=== PATIENT | male | born 1935 | race Caucasian/White ===

== ENCOUNTER 2017-07-30 07:52 | Inpatient (IN) | payer MEDICARE ==
[~2017-07-30] VITALS: Ht 172.7 cm; Wt 100.0 kg
[2017-07-30 08:00] VITALS: RESP 10; O2SAT 93
[2017-07-30 08:07] VITALS: BP 148/70; PULSE 59; RESP 14; TEMP 97.7; O2SAT 97
--- NOTE | 2017-07-30 08:14 | RADRPT ---
EXAM DATE/TIME: 07/30/2017 08:08 [facility] COMPARISON: No previous studies available for comparison. INDICATIONS : Syncope MEDICAL HISTORY : Cardiovascular disease. SURGICAL HISTORY : Pacemaker. ENCOUNTER: Initial ACUITY: 1 day PAIN SCORE: Non-responsive. LOCATION: chest FINDINGS: Single view of the chest demonstrates a dual-lead cardiac pacer. The heart size is mildly enlarged. T here is mild cephalization of pulmonary vasculature. The lungs are grossly clear. Osseous structures are unremarkable. CONCLUSION: Radiographic findings consistent with congestive heart failure. Dary Delvalle MD on July 30, 2017 at 8:10 Board Certified Radiologist. This report was verified electronically.
[2017-07-30 08:34] LABS: AUTOMATED NEUTROPHIL # 6.1 TH/MM3 (1.8-7.7); BASOPHIL % 0.2 % (0.0-2.0); EOSINOPHIL % 0.1 % (0.0-4.0); HEMATOCRIT 33.6 % (39.0-51.0); LYMPH % 7.7 % (9.0-44.0); LYMPHOCYTE # 0.5 TH/MM3 (1.0-4.8); MEAN CELL VOLUME 83.4 FL (80.0-100.0); MEAN CORPUSCULAR HEMOGLOBIN 27.3 PG (27.0-34.0); MEAN CORPUSCULAR HGB CONC 32.7 % (32.0-36.0); MONO % 4.2 % (0.0-8.0); MONOCYTE # 0.3 TH/MM3 (0-0.9); NEUT % 87.8 % (16.0-70.0); PLATELET COUNT 181 TH/MM3 (150-450); RED BLOOD COUNT 4.03 MIL/MM3 (4.50-5.90); RED CELL DISTRIBUTION WIDTH 17.3 % (11.6-17.2); WHITE BLOOD COUNT 6.9 TH/MM3 (4.0-11.0)
--- NOTE | 2017-07-30 08:39 | RADRPT ---
EXAM DATE/TIME: 07/30/2017 08:29 [facility] COMPARISON: No previous studies available for comparison. INDICATIONS : Altered mental status. RADIATION DOSE: 56.35 CTDIvol (mGy) MEDICAL HISTORY : Cardiovascular disease. SURGICAL HISTORY : None. ENCOUNTER: Initial ACUITY: 1 day PAIN SCALE: 0/10 LOCATION: cranial TECHNIQUE: Multiple contiguous axial images were obtained of the head. Using automated exposure control and adj ustment of the mA and/or kV according to patient size, radiation dose was kept as low as reasonably a chievable to obtain optimal diagnostic quality images. DICOM format image data is available electro nically for review and comparison. FINDINGS: CEREBRUM: The ventricles are normal for age. No evidence of midline shift, mass lesion, hemorrhage or acute in farction. No extra-axial fluid collections are seen. POSTERIOR FOSSA: The cerebellum and brainstem are intact. The 4th ventricle is midline. The cerebellopontine angle i s unremarkable. EXTRACRANIAL: The visualized portion of the orbits is intact. SKULL: The calvaria is intact. No evidence of skull fracture. CONCLUSION: Normal examination for a patient of this age. Dary Delvalle MD on July 30, 2017 at 8:36 Board Certified Radiologist. This report was verified electronically.
[2017-07-30 08:42] LABS: BACTERIA, URINE MOD /hpf; BILIRUBIN, URINE NEG (NEG); BLOOD, URINE NEG (NEG); GLUCOSE,URINE TRACE mg/dL (NEG); KETONE, URINE TRACE mg/dL (NEG); MUCUS URINE FEW /lpf (OCC); NITRITE,URINE POS (NEG); URINE COLOR YELLOW (YELLW/STRAW); URINE LEUKOCYTE ESTERASE LARGE (NEG); WHITE BLOOD CELL CLUMPS OCC
[2017-07-30 08:47] LABS: INTERNATIONAL NORMALIZED RATIO 1.1 RATIO; PROTHROMBIN TIME - PATIENT 10.7 SEC (9.8-11.6)
[2017-07-30 08:55] LABS: ALBUMIN 4.1 GM/DL (3.4-5.0); ALT (GPT) 16 U/L (12-78); AST (GOT) 19 U/L (15-37); BICARBONATE 24.6 MEQ/L (21.0-32.0); BLOOD UREA NITROGEN 29 MG/DL (7-18); CHLORIDE 106 MEQ/L (98-107); CREATININE 1.23 MG/DL (0.60-1.30); GLOMERULAR FILTRATION RATE 57 ML/MIN (>89); GLUCOSE,RANDOM 207 MG/DL (74-106); SODIUM (NA) 140 MEQ/L (136-145)
--- NOTE | 2017-07-30 08:59 | PD ---
HPI Chief Complaint: Altered Mental Status Time Seen by Provider: 07:58 Travel History International Travel<30 days: No Contact w/Intl Traveler<30days: No Traveled to known affect area: No History of Present Illness HPI There is an 82-year-old man who presents to the emergency department for altered mental status. [place] of state. states that starting yesterday and today he got progressively more lethargic and confused. Patient unable to provide any meaningful history. Denies any complaints at this time. Medical history obtained from EMS includes CHF, COPD, pacemaker, and use of warfarin for unclear reasons related to the pacemaker. History Past Medical History Narrative Medical Obtained from EMS CHF COPD Pacemaker used for low heart rate Warfarin use Social History Tobacco Use: No Allergies-Medications (Allergen,Severity, Reaction): Coded Allergies: atorvastatin (Verified Allergy, Unknown, 07/30/17) ciprofloxacin (Verified Allergy, Unknown, 07/30/17) doxycycline (Verified Allergy, Unknown, 07/30/17) Reported Meds & Prescriptions Reported Meds & Active Scripts Active Reported Baclofen 20 Mg Tab 20 Mg PO TID Trimethoprim 100 Mg Tab 100 Mg PO DAILY Tamsulosin (Tamsulosin HCl) 0.4 Mg Cap 0.4 Mg PO HS Fenofibrate 160 Mg Tab 160 Mg PO DAILY Amlodipine (Amlodipine Besylate) 10 Mg Tab 10 Mg PO DAILY Tradjenta (Linagliptin) 5 Mg Tab 5 Mg PO DAILY Finasteride 5 Mg Tab 5 Mg PO DAILY Do not crush. Ventolin Hfa 18 GM Inh (Albuterol Sulfate) 90 Mcg/Act Aer 2 Puff INH Q6H PRN Glipizide ER (Glipizide) 5 Mg Rico 5 Mg PO DAILY Take with breakfast or first main meal of the day. Warfarin 2 Mg Tab 2 Mg PO DAILY Metformin (Metformin HCl) 850 Mg Tab 850 Mg PO BIDPC Metoprolol Succinate ER 24 HR (Metoprolol Succinate) 100 Mg Tab 100 Mg PO DAILY Spiriva Handihaler (Tiotropium Inh) 18 Mcg Cap 18 Mcg INH DAILY 1 capsule = 18 mcg Tradjenta (Linagliptin) 5 Mg Tab 5 Mg PO DAILY Review of Systems Except as stated in HPI: all other systems reviewed are Neg Physical Exam Narrative GENERAL: 82-year-old man, no acute distress. SKIN: Warm, little bit moist. HEAD: Atraumatic. Normocephalic. EYES: Pupils equal and round. No scleral icterus. No injection or drainage. ENT: No nasal bleeding or discharge. Mucous membranes pink and moist. NECK: Trachea midline. No JVD. CARDIOVASCULAR: Regular rate and rhythm. No murmur appreciated. RESPIRATORY: No accessory muscle use. Clear to auscultation. Breath sounds equal bilaterally. GASTROINTESTINAL: Abdomen soft, non-tender, nondistended. Hepatic and splenic margins not palpable. MUSCULOSKELETAL: No obvious deformities. Trace edema. NEUROLOGICAL: Sluggishly responsive. Unable to really answer questions or follow complex commands. No apparent focal deficits. Data Data Last Documented VS Vital Signs Date Time Temp Pulse Resp B/P (MAP) Pulse Ox O2 Delivery O2 Flow Rate FiO2 07/30/17 08:07 97.7 59 14 148/70 (96) 97 Nasal Cannula 2.00 Orders Orders Electrocardiogram (07/30/17 07:58) Complete Blood Count With Diff (07/30/17 07:58) Comprehensive Metabolic Panel (07/30/17 07:58) Prothrombin Time / Inr (Pt) (07/30/17 07:58) Act Partial Throm Time (Ptt) (07/30/17 07:58) Troponin I (07/30/17 07:58) Thyroid Stimulating Hormone (07/30/17 07:58) Urinalysis - C+S If Indicated (07/30/17 07:58) Lactic Acid Sepsis Protocol (07/30/17 07:58) Arterial Blood Gas (Abg) (07/30/17 07:58) Blood Culture (07/30/17 07:58) Chest, Single Ap (07/30/17 07:58) Ct Brain W/O Iv Contrast(Rout) (07/30/17 07:58) Blood Glucose (07/30/17 07:58) Ecg Monitoring (07/30/17 07:58) Iv Access Insert/Monitor (07/30/17 07:58) Cath For Specimen (07/30/17 07:58) Oximetry (07/30/17 07:58) Drug Screen, Random Urine (07/30/17 07:58) Alcohol (Ethanol) (07/30/17 07:58) Urine Culture (07/30/17 08:20) Ceftriaxone Inj (Rocephin Inj) (07/30/17 09:15) Admit To Inpatient (07/30/17 ) Inpatient Certification (07/30/17 ) Diet Npo (07/30/17 Lunch) Nursing Bedside Swallow Assess .ONCE (07/30/17 10:30) Vital Signs (Adult) NENO.Q4H (07/30/17 10:30) Neuro Checks . ORDERED (07/30/17 10:30) Activity Bed Rest With Brp (07/30/17 10:30) Admit Order (Ed Use Only) (07/30/17 ) Bedside Glucose NENO.CSUGAR (07/30/17 10:32) Labs Laboratory Tests Test 07/30/17 08:20 07/30/17 08:38 White Blood Count 6.9 TH/MM3 Red Blood Count 4.03 MIL/MM3 Hemoglobin 11.0 GM/DL Hematocrit 33.6 % Mean Corpuscular Volume 83.4 FL Mean Corpuscular Hemoglobin 27.3 PG Mean Corpuscular Hemoglobin Concent 32.7 % Red Cell Distribution Width 17.3 % Platelet Count 181 TH/MM3 Mean Platelet Volume 8.0 FL Neutrophils (%) (Auto) 87.8 % Lymphocytes (%) (Auto) 7.7 % Monocytes (%) (Auto) 4.2 % Eosinophils (%) (Auto) 0.1 % Basophils (%) (Auto) 0.2 % Neutrophils # (Auto) 6.1 TH/MM3 Lymphocytes # (Auto) 0.5 TH/MM3 Monocytes # (Auto) 0.3 TH/MM3 Eosinophils # (Auto) 0.0 TH/MM3 Basophils # (Auto) 0.0 TH/MM3 CBC Comment DIFF FINAL Differential Comment Prothrombin Time 10.7 SEC Prothromb Time International Ratio 1.1 RATIO Activated Partial Thromboplast Time 21.2 SEC Urine Color YELLOW Urine Turbidity HAZY Urine pH 6.0 Urine Specific [place] 1.015 Urine Protein TRACE mg/dL Urine Glucose (UA) TRACE mg/dL Urine Ketones TRACE mg/dL Urine Occult Blood NEG Urine Nitrite POS Urine Bilirubin NEG Urine Urobilinogen LESS THAN 2.0 MG/DL Urine Leukocyte Esterase LARGE Urine RBC LESS THAN 1 /hpf Urine WBC 53 /hpf Urine WBC Clumps OCC Urine Bacteria MOD /hpf Urine Mucus FEW /lpf Microscopic Urinalysis Comment CATH-CULTURE IND Blood Urea Nitrogen 29 MG/DL Creatinine 1.23 MG/DL Random Glucose 207 MG/DL Total Protein 7.6 GM/DL Albumin 4.1 GM/DL Calcium Level 9.0 MG/DL Alkaline Phosphatase 28 U/L Aspartate Amino Transf (AST/SGOT) 19 U/L Alanine Aminotransferase (ALT/SGPT) 16 U/L Total Bilirubin 0.5 MG/DL Sodium Level 140 MEQ/L Potassium Level 4.4 MEQ/L Chloride Level 106 MEQ/L Carbon Dioxide Level 24.6 MEQ/L Anion Gap 9 MEQ/L Estimat Glomerular Filtration Rate 57 ML/MIN Lactic Acid Level 1.0 mmol/L Troponin I LESS THAN 0.02 NG/ML Thyroid Stimulating Hormone 3rd Gen 0.814 uIU/ML Urine Opiates Screen NEG Urine Barbiturates Screen NEG Urine Amphetamines Screen NEG Urine Benzodiazepines Screen NEG Urine Cocaine Screen NEG Urine Cannabinoids Screen NEG Ethyl Alcohol Level LESS THAN 3 MG/DL Blood Gas Puncture Site RT RADIAL Blood Gas Patient Temperature 98.6 Blood Gas HCO3 23 mmol/L Blood Gas Base Excess -2.0 mmol/L Blood Gas Oxygen Saturation 94 % Arterial Blood pH 7.31 Arterial Blood Partial Pressure CO2 48 mmHg Arterial Blood Partial Pressure O2 89 mmHG Arterial Blood Oxygen Content 13.7 Vol % Arterial Blood Carboxyhemoglobin 1.1 % Arterial Blood Methemoglobin 0.6 % Blood Gas Hemoglobin 10.4 G/DL Oxygen Delivery Device NASAL CANNULA Blood Gas Liter Flow 2 L/M [facility] Medical Decision Making Medical Screen Exam Complete: Yes Emergency Medical Condition: Yes Interpretation(s) LABS: CBC remarkable for mild anemia. CMP glucose 207 TSH normal Lactate 1.0 Troponin negative Coags unremarkable. Drug screen negative Alcohol negative Coags unremarkable UA with pyuria. ABG 7.3 // Head CT normal Chest x-ray: Radiographic findings consistent with congestive heart failure. Review of EKG: Ventricular paced at a rate of 60, underlying rhythm may be a flutter. Differential Diagnosis Infection, sepsis, UTI, stroke, intracranial bleed, hypoventilation, other Narrative Course Medical decision making INITIAL: 82-year-old male presents to emergency room with altered mental status. Workup is suggestive of a UTI as a cause of his altered mental status. Respirations dewdrop at times and patient somnolent. Did respond oxygen. Looks a little bit unwell but not toxic. Given IV antibiotics. Does not appear grossly volume overloaded but chest x-rays were read as a little bit wet. Will hold IV fluids for now. Will admit for further evaluation and treatment. Diagnosis Primary Impression: Altered mental status Additional Impression: UTI (urinary tract infection) Admitting Information Admitting Physician Requests: Admit Manjit Odom MD Jul 30, 2017 08:58
[2017-07-30 09:05] LABS: ALKALINE PHOSPHATASE 28 U/L (45-117); TOTAL BILIRUBIN ADULT 0.5 MG/DL (0.2-1.0); TOTAL PROTEIN 7.6 GM/DL (6.4-8.2); TROPONIN I LESS THAN 0.02 NG/ML (0.02-0.05)
[2017-07-30] MEDS ORDERED: cefTRIAXone INJ 1,000 MG in SODIUM CHLORIDE 0.9% INJ 100 ML IV ONE (09:15)
[2017-07-30] MEDS ORDERED: FENO160T PO (09:20)
[2017-07-30] MEDS ORDERED: METF850T PO (09:20)
[2017-07-30] MEDS ORDERED: FINA5TAB2 PO (09:20)
[2017-07-30] MEDS ORDERED: SPIRCAP INH (09:20)
[2017-07-30] MEDS ORDERED: GLIP1TAB49 PO (09:20)
[2017-07-30] MEDS ORDERED: TRAD5TAB PO ×2 (09:20)
[2017-07-30] MEDS ORDERED: AMLO10TA2 PO (09:20)
[2017-07-30] MEDS ORDERED: TRIME100 PO (09:20)
[2017-07-30] MEDS ORDERED: TAMS0.4C4 PO (09:20)
[2017-07-30] MEDS ORDERED: VENTAER INH (09:20)
[2017-07-30] MEDS ORDERED: BACL20TA PO (09:20)
[2017-07-30] MEDS ORDERED: METO1TAB43 PO (09:20)
[2017-07-30] MEDS ORDERED: WARF4TAB51 PO (09:20)
[2017-07-30 12:00] VITALS: BP 165/75; PULSE 60; RESP 16; TEMP 97.6; O2SAT 95
--- NOTE | 2017-07-30 15:13 | HHI.HP ---
[facility] Admission Diagnosis Altered mental status, UTI Diagnoses: (1) Enceohalopathy Diagnosis: Principal (2) Urinary tractninfection Diagnosis: Principal Chief Complaint: Change in mental status Travel History International Travel<30 Days: No Contact w/Intl Traveler <30 Da: No Traveled to Known Affected Are: No History of Present Illness Patient is a an 82-year-old male with known history of COPD, hypertension hyperlipidemia status post pacemaker placement, diabetes type 2, history of benign prostatic hypertrophy with a self catheterization twice a day for over the past 10 years now. He was diagnosed with BPH about 15 years ago and had microwave laser surgery for this. In between self-catheterization patient is able to void spontaneously. Yesterday he was noted by his to be confused and agitated. There was no documented fever or chills. Last evening after supper he was noted to be confused, states "wobbly". He was so confused that he wasn't able to catheterize. states that he was seeing people around him. At 3:30 AM patient woke up confused but is able to go back to sleep again after an hour. This morning at around 620 noted patient to be agitated. She called 911 and patient was brought in here for further evaluation and management. At the ER patient was given IV fluids. UA + for urinary tract infection. His last episode of urinary tract infection was in May 2017 Now on history taking patient is awake alert oriented 3. Very appropriate. And cooperative Per family patient just like this whenever he gets urinary tract infection. As mentioned he does self catheterization catheterization twice a day and gets around 200-250 cc. at a time The last time he did was as stated yesterday morning and was noted the urine to be cloudy. Review of Systems Constitutional: DENIES: Diaphoretic episodes, Fatigue, Fever, Weight gain, Weight loss, Chills, Dizziness, Change in appetite, Night Sweats Endocrine: DENIES: Heat/cold intolerance, Polydipsia, Polyuria, Polyphagia Eyes: DENIES: Blurred vision, Diplopia, Eye inflammation, Eye pain, Vision loss , Photosensitivity, Double Vision Ears, nose, mouth, throat: DENIES: Tinnitus, Hearing loss, Vertigo, Nasal discharge, Oral lesions, Throat pain, Hoarseness, Ear Pain, Running Nose, Epistaxis, Sinus Pain, Toothache, Odynophagia Respiratory: DENIES: Apneas, Cough, Snoring, Wheezing, Hemoptysis, Sputum production, Shortness of breath Cardiovascular: DENIES: Chest pain, Palpitations, Syncope, Dyspnea on Exertion , PND, Lower Extremity Edema, Orthopnea, Claudication Gastrointestinal: DENIES: Abdominal pain, Black stools, Bloody stools, Constipation, Diarrhea, Nausea, Vomiting, Difficulty Swallowing, Anorexia Genitourinary: COMPLAINS OF: Urinary frequency Musculoskeletal: DENIES: Joint pain, Muscle aches, Stiffness, Joint Swelling, Back pain, Neck pain Integumentary: DENIES: Abnormal pigmentation, Nail changes, Pruritus, Rash Hematologic/lymphatic: DENIES: Bruising, Lymphadenopathy Immunologic/allergic: DENIES: Eczema, Urticaria Neurologic: DENIES: Abnormal gait, Headache, Localized weakness, Paresthesias, Seizures, Speech Problems, Tremor, Poor Balance Psychiatric: DENIES: Anxiety, Confusion, Mood changes, Depression, Hallucinations, Agitation, Suicidal Ideation, Homicidal Ideation, Delusions Past Family Social History Past Medical History Hypertension COPD Hyperlipidemia Diabetes type 2 History of pacemaker placement. Denies any history of CAD or CVA History of benign prostatic hypertrophy status post microwave laser surgery Past Surgical History Pacemaker placement Back surgery Knuckle surgery for both hands due to arthritis Microwaved [place] surgery for prostate 10 years ago Reported Medications Trimethoprim 100 mg daily Spiriva Albuterol Tamsulosin Baclofen Warfarin Fenofibrate Toprol Amlodipine 10 mg Metformin 850 twice a Cogentin 5 mg daily Glipizide 5 mg daily Proscar 5 mg daily Jessica lax 17 g daily Allergies: Coded Allergies: atorvastatin (Verified Allergy, Unknown, 07/30/17) ciprofloxacin (Verified Allergy, Unknown, 07/30/17) doxycycline (Verified Allergy, Unknown, 07/30/17) Family History Noncontributory Social History Quit smoking 20 years ago denies alcohol or substance abuse Physical Exam Vital Signs Vital Signs Date Time Temp Pulse Resp B/P (MAP) Pulse Ox O2 Delivery O2 Flow Rate FiO2 07/30/17 12:00 97.6 60 16 165/75 (105) 95 07/30/17 11:41 07/30/17 08:07 97.7 59 14 148/70 (96) 97 Nasal Cannula 2.00 07/30/17 08:02 60 10 97 Nasal Cannula 2.00 07/30/17 08:00 10 93 Nasal Cannula 2.00 Physical Exam GENERAL: Awake alert oriented 3 not in any form of distress SKIN: No rashes, ecchymoses or lesions. Cool and dry. HEAD: Atraumatic. Normocephalic. No temporal or scalp tenderness. EYES: Pupils equal round and reactive. Extraocular motions intact. No scleral icterus. No injection or drainage. ENT: Nose without bleeding, Throat without erythema, tonsillar hypertrophy or exudate. Uvula midline. Airway patent. NECK: Trachea midline. No JVD or lymphadenopathy. Supple, nontender, no meningeal signs. CARDIOVASCULAR: Regular rate and rhythm without murmurs, gallops, or rubs. RESPIRATORY: Clear to auscultation. Breath sounds equal bilaterally. No wheezes , rales, or rhonchi. GASTROINTESTINAL: Abdomen soft, non-tender, . No guarding. Circumcised penis no penile discharge no scrotal swelling MUSCULOSKELETAL: Extremities without clubbing, cyanosis, or edema. No joint tenderness, effusion, or edema noted. No calf tenderness. Negative Homans sign bilaterally. NEUROLOGICAL: Awake and alert. Cranial nerves II through XII intact. Motor and sensory grossly within normal limits. Five out of 5 muscle strength in all muscle groups. Normal speech. Laboratory Laboratory Tests Test 07/30/17 08:20 07/30/17 08:38 White Blood Count 6.9 Red Blood Count 4.03 Hemoglobin 11.0 Hematocrit 33.6 Mean Corpuscular Volume 83.4 Mean Corpuscular Hemoglobin 27.3 Mean Corpuscular Hemoglobin Concent 32.7 Red Cell Distribution Width 17.3 Platelet Count 181 Mean Platelet Volume 8.0 Neutrophils (%) (Auto) 87.8 Lymphocytes (%) (Auto) 7.7 Monocytes (%) (Auto) 4.2 Eosinophils (%) (Auto) 0.1 Basophils (%) (Auto) 0.2 Neutrophils # (Auto) 6.1 Lymphocytes # (Auto) 0.5 Monocytes # (Auto) 0.3 Eosinophils # (Auto) 0.0 Basophils # (Auto) 0.0 CBC Comment DIFF FINAL Differential Comment Prothrombin Time 10.7 Prothromb Time International Ratio 1.1 Activated Partial Thromboplast Time 21.2 Urine Color YELLOW Urine Turbidity HAZY Urine pH 6.0 Urine Specific [place] 1.015 Urine Protein TRACE Urine Glucose (UA) TRACE Urine Ketones TRACE Urine Occult Blood NEG Urine Nitrite POS Urine Bilirubin NEG Urine Urobilinogen LESS THAN 2.0 Urine Leukocyte Esterase LARGE Urine RBC LESS THAN 1 Urine WBC 53 Urine WBC Clumps OCC Urine Bacteria MOD Urine Mucus FEW Microscopic Urinalysis Comment CATH-CULTURE IND Blood Urea Nitrogen 29 Creatinine 1.23 Random Glucose 207 Total Protein 7.6 Albumin 4.1 Calcium Level 9.0 Alkaline Phosphatase 28 Aspartate Amino Transf (AST/SGOT) 19 Alanine Aminotransferase (ALT/SGPT) 16 Total Bilirubin 0.5 Sodium Level 140 Potassium Level 4.4 Chloride Level 106 Carbon Dioxide Level 24.6 Anion Gap 9 Estimat Glomerular Filtration Rate 57 Lactic Acid Level 1.0 Troponin I LESS THAN 0.02 B-Type Natriuretic Peptide 129 Thyroid Stimulating Hormone 3rd Gen 0.814 Urine Opiates Screen NEG Urine Barbiturates Screen NEG Urine Amphetamines Screen NEG Urine Benzodiazepines Screen NEG Urine Cocaine Screen NEG Urine Cannabinoids Screen NEG Ethyl Alcohol Level LESS THAN 3 Blood Gas Puncture Site RT RADIAL Blood Gas Patient Temperature 98.6 Blood Gas HCO3 23 Blood Gas Base Excess -2.0 Blood Gas Oxygen Saturation 94 Arterial Blood pH 7.31 Arterial Blood Partial Pressure CO2 48 Arterial Blood Partial Pressure O2 89 Arterial Blood Oxygen Content 13.7 Arterial Blood Carboxyhemoglobin 1.1 Arterial Blood Methemoglobin 0.6 Blood Gas Hemoglobin 10.4 Oxygen Delivery Device NASAL CANNULA Blood Gas Liter Flow 2 Date/Time Source Procedure Growth Status 07/30/17 08:20 Blood Peripheral Aerobic Blood Culture Pending Received 07/30/17 08:20 Blood Peripheral Anaerobic Blood Culture Pending Received 07/30/17 08:20 Urine Catheterized Urine Urine Culture Pending Received Result Diagram: 07/30/17 0820 07/30/17 08 Imaging Last Impressions Head CT 07/30/17757 Signed Impressions: Service Date/Time: Sunday, July 30, 2017 08:29 - CONCLUSION: Normal examination for a patient of this age. Dary Delvalle MD Chest X-Ray 07/30/17757 Signed Impressions: Service Date/Time: Sunday, July 30, 2017 08:08 - CONCLUSION: Radiographic findings consistent with congestive heart failure. MD Naseem Pratt VTE Risk Assessment Caprinmarzena VTE Risk Assessment: Mod/High Risk (score >= 2) Caprini Risk Assessment Model Point Value = 1 Point Value = 2 Point Value = 3 Point Value = 5 Age 41-60 Minor surgery BMI > 25 kg/m2 Swollen legs Varicose veins or History of unexplained or recurrent spontaneous Oral contraceptives or hormone replacement Sepsis (< 1 month) Serious lung disease, including pneumonia (< 1 month) Abnormal pulmonary function Acute myocardial infarction Congestive heart failure (< 1 month) History of inflammatory bowel disease Medical patient at bed rest Age 61-74 Arthroscopic surgery Major open surgery (> 45 min) Laparoscopic surgery (> 45 min) Malignancy Confined to bed (> 72 hours) Immobilizing plaster cast Central venous access Age >= 75 History of VTE Family history of VTE Factor V Leiden Prothrombin [id number] Lupus anticoagulant Anticardiolipin antibodies Elevated serum homocysteine Heparin-induced thrombocytopenia Other congenital or acquired thrombophilia Stroke (< 1 month) Elective arthroplasty Hip, pelvis, or leg fracture Acute spinal cord injury (< 1 month) Prophylaxis Regimen Total Risk Factor Score Risk Level Prophylaxis Regimen 0-1 Low Early ambulation 2 Moderate Order ONE of the following: *Sequential Compression Device (SCD) *Heparin 5000 units SQ BID 3-4 Higher Order ONE of the following medications: *Heparin 5000 units SQ TID *Enoxaparin/Lovenox 40 mg SQ daily (WT < 150 kg, CrCl > 30 mL/min) *Enoxaparin/Lovenox 30 mg SQ daily (WT < 150 kg, CrCl > 10-29 mL/min) *Enoxaparin/Lovenox 30 mg SQ BID (WT < 150 kg, CrCl > 30 mL/min) AND/OR *Sequential Compression Device (SCD) 5 or more Highest Order ONE of the following medications: *Heparin 5000 units SQ TID (Preferred with Epidurals) *Enoxaparin/Lovenox 40 mg SQ daily (WT < 150 kg, CrCl > 30 mL/min) *Enoxaparin/Lovenox 30 mg SQ daily (WT < 150 kg, CrCl > 10-29 mL/min) *Enoxaparin/Lovenox 30 mg SQ BID (WT < 150 kg, CrCl > 30 mL/min) AND *Sequential Compression Device (SCD) Assessment and Plan Assessment and Plan Patient is an 82-year-old male who presented with Acute encephalopathy secondary to uterine tract infection.- Mental status now improved. Continue to monitor mental status. Complicated Urinary tract infection.with underlying BPH Started on IV antibiotic ceftriaxone once a day. Follow [employer] [place] today for decompression Instruct patient and family that they might have to do intermittent catheterization more frequently like every 6-8 hours. Scheduled BPH. Continue on tamsulosin 0.4 mg at bedtime. Continue Proscar COPD in remission. Continue on metered-dose inhalers History of hypertension/pacemaker placement. Not in any form of failure. No chest pains or shortness of breath. continue meds. BB. CCB, coumadin COPD in remission. Continue on metered-dose inhalers Diabetes type 2 continue on meds.check A1C History of constipation continue on Jessica lax 17 g daily. DVT prophylaxis- early ambulation, PT eval in am. on coumadin Discussed Condition With patient Physician Certification 2 Midnight Certification Type: Admission for Inpatient Services Order for Inpatient Services The services are ordered in accordance with Medicare regulations or non- Medicare payer requirements, as applicable. In the case of services not specified as inpatient-only, they are appropriately provided as inpatient services in accordance with the 2-midnight benchmark. Estimated LOS (days): 3 days is the estimated time the patient will need to remain in the hospital, assuming treatment plan goals are met and no additional complications. Post-Hospital Plan: Not yet determined Case Wilkins MD Jul 30, 2017 15:13
[2017-07-30] MEDS ORDERED: ALBUTEROL SULFATE 90 MCG/ACT HFA 8 GM INHALER INH PRN (15:30)
[2017-07-30 16:00] VITALS: BP 172/78; PULSE 60; RESP 16; TEMP 98.1; O2SAT 97
[2017-07-30] MEDS: SODIUM CHLOR 0.9% 1000 ML INJ 1,000 ML IV SCH (16:12)
--- NOTE | 2017-07-30 16:46 | EKG ---
Date Performed: 07/30/2017 Time Performed: 08:10:39 PTAGE: 82 years EKG: ELECTRONIC VENTRICULAR PACEMAKER NO PREVIOUS TRACING DOCTOR: Robert Crisostomo Interpretating Date/Time 07/30/2017 16:45:06
[2017-07-30] MEDS: BACLOFEN 20 MG TAB PO SCH (17:36)
[2017-07-30] MEDS ORDERED: metFORMIN HCL 850 MG TAB PO SCH (18:00)
[2017-07-30] MEDS: POLYETHYLENE GLYCOL 17 GM PKG PO SCH (18:03)
[2017-07-30] MEDS: TAMSULOSIN HCL 0.4 MG CAP PO SCH (19:23)
[2017-07-30 19:26] VITALS: BP 177/82; PULSE 60; RESP 16; TEMP 98.4; O2SAT 96
[2017-07-31 04:00] VITALS: BP 170/72; PULSE 55; RESP 17; TEMP 97.6; O2SAT 96
[2017-07-31 07:56] VITALS: BP 161/75; PULSE 59; RESP 20; TEMP 97.3; O2SAT 95
[2017-07-31] MEDS: cefTRIAXone INJ 1,000 MG in SODIUM CHLORIDE 0.9% INJ 100 ML IV SCH (08:12)
[2017-07-31] MEDS: METOPROLOL SUCCINATE 50 MG EXTENDED RELEASE TAB PO SCH (08:18)
[2017-07-31] MEDS: FINASTERIDE 5 MG TAB PO SCH (08:18)
[2017-07-31] MEDS: BACLOFEN 20 MG TAB PO SCH ×3 (08:18→17:19)
[2017-07-31] MEDS: POLYETHYLENE GLYCOL 17 GM PKG PO SCH (08:18)
[2017-07-31] MEDS: FENOFIBRATE 145 MG TAB PO SCH (08:18)
[2017-07-31] MEDS ORDERED: LINAGLIPTIN 5 MG PO SCH (09:00)
[2017-07-31 09:46] LABS: BICARBONATE 27.6 MEQ/L (21.0-32.0); BLOOD UREA NITROGEN 19 MG/DL (7-18); CALCIUM 9.6 MG/DL (8.5-10.1); CHLORIDE 103 MEQ/L (98-107); CREATININE 0.97 MG/DL (0.60-1.30); GLOMERULAR FILTRATION RATE 74 ML/MIN (>89); GLUCOSE,RANDOM 153 MG/DL (74-106); SODIUM (NA) 138 MEQ/L (136-145)
[2017-07-31] MEDS: TIOTROPIUM BROMIDE 18 MCG INH INH SCH (10:37)
--- NOTE | 2017-07-31 10:38 | HHI.PR ---
Subjective Remarks awake and alert, no fever or chills calvin in place no nausea or vomiting Objective Vitals Vital Signs Date Time Temp Pulse Resp B/P (MAP) Pulse Ox O2 Delivery O2 Flow Rate FiO2 07/31/17 07:56 97.3 59 20 161/75 (103) 95 07/31/17 04:00 97.6 55 17 170/72 (104) 96 07/30/17 19:26 98.4 60 16 177/82 (113) 96 07/30/17 16:00 98.1 60 16 172/78 (109) 97 07/30/17 12:00 97.6 60 16 165/75 (105) 95 07/30/17 11:41 I/O 07/30/17 07/30/17 07/30/17 07/31/17 07/31/17 07/31/17 07:00 15:00 23:00 07:00 15:00 23:00 Intake Total 100 ml 1200 ml Output Total 1000 ml 2500 ml Balance -900 ml -1300 ml Intake Oral 1200 ml IV Total 100 ml Output Urine Total 1000 ml 2500 ml # Voids 1 # Bowel Movements 1 Result Diagram: 07/30/17 0820 07/31/17 0833 Imaging Last Impressions Head CT 07/30/17 0758 Signed Impressions: Service Date/Time: Sunday, July 30, 2017 08:29 - CONCLUSION: Normal examination for a patient of this age. Dary Delvalle MD Chest X-Ray 07/30/17 0758 Signed Impressions: Service Date/Time: Sunday, July 30, 2017 08:08 - CONCLUSION: Radiographic findings consistent with congestive heart failure. Dary Delvalle MD Objective Remarks awake and alert, oriented x 3 anicteric lungs -clear regular rhythm abdomen- soft, nontender calvin in place extremities no edema neuro exam- unremarkable Urinary Catheter: Yes Assessment to: Continue Calvin insert reason: Obstruction/Retention Date of Insertion: Jul 30, 2017 A/P Assessment and Plan Patient is an 82-year-old male who presented with Acute encephalopathy - Improved- secondary to uterine tract infection Complicated Urinary tract infection.with underlying BPH on IV antibiotic ceftriaxone once a day. C and s pending Place Calvin for decompression Instruct patient and family that they might have to do intermittent catheterization more frequently like every 6-8 hours. Scheduled BPH. Continue on tamsulosin 0.4 mg at bedtime. Continue Proscar COPD in remission. Continue on metered-dose inhalers History of hypertension/pacemaker placement. Not in any form of failure. No chest pains or shortness of breath. continue meds. BB. CCB, coumadin COPD in remission. Continue on metered-dose inhalers Diabetes type 2 continue on meds. History of constipation continue on Jessica lax 17 g daily. DVT prophylaxis- early ambulation, PT eval in am. on coumadin D/w family- we are waiting for final C and s to come back and will DC him on appropriate po antibiotics we will remove calvin right before Dc d/w them that to do self catheterization- more frequently- q4- 6- and prn knowledgeable with technique and supplies -states usually does it bid- and gets about est 400- 500 cc Case Wilkins MD Jul 31, 2017 10:38
[2017-07-31] MEDS: ACETAMINOPHEN 325 MG TAB PO PRN ×2 (11:50→17:41)
[2017-07-31 11:51] VITALS: BP 143/65; PULSE 59; RESP 20; TEMP 97.3; O2SAT 92
[2017-07-31] MEDS ORDERED: ONDANSETRON HCL 4 MG/2 ML VIAL ONE (15:43)
[2017-07-31] MEDS ORDERED: WARFARIN SOD 2 MG TAB PO SCH (16:00)
[2017-07-31 16:10] VITALS: BP 143/67; PULSE 61; RESP 20; TEMP 97.9; O2SAT 94
[2017-07-31 17:11] LABS: HEMOGLOBIN A1C 7.7 % (4.3-6.0)
[2017-07-31] MEDS: SODIUM CHLOR 0.9% 1000 ML INJ 1,000 ML IV SCH (20:50)
[2017-07-31] MEDS: TAMSULOSIN HCL 0.4 MG CAP PO SCH (20:50)
[2017-07-31 20:51] VITALS: BP 144/67; PULSE 61; RESP 18; TEMP 98; O2SAT 93
[2017-08-01 01:36] VITALS: BP 142/73; PULSE 60; RESP 20; TEMP 97.5; O2SAT 92
[2017-08-01 06:36] VITALS: BP 150/73; PULSE 60; RESP 20; TEMP 97.3; O2SAT 96
[2017-08-01] MEDS: cefTRIAXone INJ 1,000 MG in SODIUM CHLORIDE 0.9% INJ 100 ML IV SCH (08:23)
[2017-08-01] MEDS: TIOTROPIUM BROMIDE 18 MCG INH INH SCH (08:23)
[2017-08-01] MEDS: FINASTERIDE 5 MG TAB PO SCH (08:24)
[2017-08-01] MEDS: POLYETHYLENE GLYCOL 17 GM PKG PO SCH (08:24)
[2017-08-01] MEDS: FENOFIBRATE 145 MG TAB PO SCH (08:24)
[2017-08-01] MEDS: METOPROLOL SUCCINATE 50 MG EXTENDED RELEASE TAB PO SCH (08:24)
[2017-08-01] MEDS: BACLOFEN 20 MG TAB PO SCH ×2 (08:24→12:59)
[2017-08-01] MEDS: ACETAMINOPHEN 325 MG TAB PO PRN (08:35)
[2017-08-01 08:46] VITALS: BP 142/67; PULSE 60; RESP 18; TEMP 97.3; O2SAT 95
--- NOTE | 2017-08-01 10:47 | HHI.PR ---
Subjective Remarks awake and alert no complains afebrile no pain Objective Vitals Vital Signs Date Time Temp Pulse Resp B/P (MAP) Pulse Ox O2 Delivery O2 Flow Rate FiO2 08/01/17 09:35 18 08/01/17 08:46 97.3 60 18 142/67 (92) 95 08/01/17 06:36 97.3 60 20 150/73 (98) 96 08/01/17 01:36 97.5 60 20 142/73 (96) 92 07/31/17 20:51 98.0 61 18 144/67 (92) 93 07/31/17 16:10 97.9 61 20 143/67 (92) 94 07/31/17 11:51 97.3 59 20 143/65 (91) 92 I/O 07/31/17 07/31/17 07/31/17 08/01/17 08/01/17 08/01/17 07:00 15:00 23:00 07:00 15:00 23:00 Intake Total 1200 ml 100 ml 1361 ml Output Total 2500 ml 800 ml 600 ml Balance -1300 ml 100 ml 561 ml -600 ml Intake Oral 1200 ml 480 ml IV Total 100 ml 881 ml Output Urine Total 2500 ml 800 ml 600 ml # Bowel Movements 1 2 1 1 Result Diagram: 07/30/17 0820 07/31/17 0833 Imaging Last Impressions Head CT 07/30/17757 Signed Impressions: Service Date/Time: Sunday, July 30, 2017 08:29 - CONCLUSION: Normal examination for a patient of this age. Dary Delvalle MD Chest X-Ray 07/30/17 0758 Signed Impressions: Service Date/Time: Sunday, July 30, 2017 08:08 - CONCLUSION: Radiographic findings consistent with congestive heart failure. Dary Delvalle MD Objective Remarks awake and alert, oriented x 3 anicteric lungs -clear regular rhythm abdomen- soft, nontender calvin in place extremities no edema neuro exam- unremarkable Date of Insertion: Jul 30, 2017 A/P Assessment and Plan Patient is an 82-year-old male who presented with Acute encephalopathy - Improved- secondary to uterine tract infection Complicated Urinary tract infection.with underlying BPH- growing Pseudomonas and group D enterococcus on IV antibiotic ceftriaxone once a day. but no testing done for this drug Keep Calvin while in house . will Remove prior to DC Instruct patient and family that they might have to do intermittent catheterization more frequently like every 6-8 hours. Scheduled have all supplies and materials - aseptic technique- knowledgeable Cirpo-listed as allergy- does not recall reaction- will call his MD in [place] get ID consult for recommendation repeat UA as OP after course of antiibotics through PCP I d/w reviewed with Micro-Pseudo and the Enterococcus -both sensitive to levaquin BPH. Continue on tamsulosin 0.4 mg at bedtime. Continue Proscar COPD in remission. Continue on metered-dose inhalers History of hypertension/pacemaker placement. Not in any form of failure. No chest pains or shortness of breath. continue meds. BB. CCB, coumadin COPD in remission. Continue on metered-dose inhalers Diabetes type 2 A1C 7.7. Continue on Tradgjenta. Increase metformin to 1 gm bid. continue glipizide History of constipation continue on Jessica lax 17 g daily. DVT prophylaxis- early ambulation, PT eval in am. on coumadin D/w family- we are waiting for final C and s to come back and will DC him on appropriate po antibiotics we will remove calvin right before Dc d/w them that to do self catheterization- more frequently- q4- 6- and prn knowledgeable with technique and supplies -states usually does it bid- and gets about est 400- 500 cc staff nurse spoke with - - - + nausea with ciprofloxacin, no history of rashes or shortness of breathin will try po Levaquin 500 mg daily - if tolerated DC home today on this ADD Tolerated po Levaquin DC home today on Levaquin x 7 more days advise to ff up with PCP and Urology reinforced aseptic technique and more frequent schedule intermittent catheterization. paitnet and expressed understanding diet heart healthym diabetic activity as tolerated Case Wilkins MD Aug 01, 2017 10:47
[2017-08-01 12:06] LABS: BACTERIA, URINE RARE /hpf; BILIRUBIN, URINE NEG (NEG); BLOOD, URINE MOD (NEG); GLUCOSE,URINE 300 mg/dL (NEG); KETONE, URINE NEG (NEG); MUCUS URINE FEW /lpf (OCC); NITRITE,URINE NEG (NEG); URINE COLOR YELLOW (YELLW/STRAW); URINE LEUKOCYTE ESTERASE LARGE (NEG); WHITE BLOOD CELL CLUMPS FEW
[2017-08-01] MEDS ORDERED: LEVOFLOXACIN 500 MG TAB PO SCH (12:15)
[2017-08-01 12:37] VITALS: BP 147/70; PULSE 65; RESP 18; TEMP 98; O2SAT 94
[2017-08-01] MEDS ORDERED: LEVA500T33 PO (14:28)
[2017-08-01] MEDS ORDERED: metFORMIN HCL 500 MG TAB PO SCH (18:00)
== END 2017-08-01 15:57 | disposition home or self-care (01) | DRG 689 ==
LOC: NEPE 07:52 → NEDA 10:33 → N05B 12:05
PROVIDERS: ADMIT Hospitalist; ATTEND Hospitalist
PROC: 0T9B70Z Drainage of Bladder with Drainage Device, Via Natural or Artificial Opening (ICD-10-PCS; principal; 2017-07-30)
DX: N39.0 Urinary tract infection, site not specified (principal); G93.40 Encephalopathy, unspecified; J44.9 Chronic obstructive pulmonary disease, unspecified; I11.0 Hypertensive heart disease with heart failure; I50.9 Heart failure, unspecified; E11.9 Type 2 diabetes mellitus without complications; E78.5 Hyperlipidemia, unspecified; B96.5 Pseudomonas (aeruginosa) (mallei) (pseudomallei) as the cause of diseases classified elsewhere; B95.2 Enterococcus as the cause of diseases classified elsewhere; D64.9 Anemia, unspecified; K59.00 Constipation, unspecified; N40.0 Benign prostatic hyperplasia without lower urinary tract symptoms; M19.90 Unspecified osteoarthritis, unspecified site; Z79.84 Long term (current) use of oral hypoglycemic drugs; Z87.891 Personal history of nicotine dependence; Z88.1 Allergy status to other antibiotic agents; Z95.0 Presence of cardiac pacemaker
CPT/HCPCS: 36600; 70450; 71045; 80048; 80053; 80307; 81001; 82805; 82948; 83036; 83605; 83880; 84443; 84484; 85025; 85610; 85730; 87040; 87077; 87086; 87186; 93005; 96374; J0696; J2405; J7030; P9612